=== PATIENT | female | born 1965 | race African-American/Black ===

== ENCOUNTER 2018-10-02 17:31 | Emergency (ER) | payer MEDICAID ==
[~2018-10-02] VITALS: Ht 162.6 cm; Wt 70.0 kg
[2018-10-02] MEDS ORDERED: LURA60TA PO (18:14)
[2018-10-02] MEDS ORDERED: LIDOCAINE HCL 1% 20ML VIAL (Pyxis) INJ INFIL ONE (20:30)
[2018-10-02 20:48] VITALS: BP 176/110
== END 2018-10-02 20:51 | disposition home or self-care (01) ==
LOC: ER 18:02
DX: L03.011 Cellulitis of right finger (principal); I10 Essential (primary) hypertension; F12.90 Cannabis use, unspecified, uncomplicated
CPT/HCPCS: 99283; J3490; Z7610

== ENCOUNTER 2018-10-07 07:35 | Emergency (ER) | payer MEDICAID ==
[~2018-10-07] VITALS: Ht 162.6 cm; Wt 70.0 kg
[~2018-10-07 07:35] MED LIST: LURA60TA PO
[2018-10-07] MEDS ORDERED: HYDROCODONE/ACETAMINOPHEN 5/325MG TABLET PO ONE (09:45)
[2018-10-07] MEDS ORDERED: AMPICILLIN SOD/SULBACTAM NA 3 G in SODIUM CHLORIDE 0.9% 100 ML IV SCH (10:00)
[2018-10-07 12:18] VITALS: BP 129/80
== END 2018-10-07 12:25 | disposition left against medical advice (07) ==
LOC: ER 07:35
DX: L03.012 Cellulitis of left finger (principal); M65.849 Other synovitis and tenosynovitis, unspecified hand; F31.9 Bipolar disorder, unspecified; F12.10 Cannabis abuse, uncomplicated; F17.200 Nicotine dependence, unspecified, uncomplicated; Z90.710 Acquired absence of both cervix and uterus; Z79.899 Other long term (current) drug therapy
CPT/HCPCS: 73140; 96365; 96366; 99283; J0295; J7050